=== PATIENT | female | born 1950 | race Caucasian/White ===

== ENCOUNTER 2018-04-01 08:00 | Outpatient (RCR) ==
--- NOTE | 2018-03-15 16:54 | RS.OTEVAL ---
Subjective Date of Note: 03/15/18 Visit #: 1 Date of Evaluation: 03/15/18 Payer Source: MEDICARE Date of Onset/Injury/Change in Status: 03/05/15 Surgery Performed?: Yes Date of Procedure: 01/27/18 Treatment Diagnosis: M18.12 Treatment Side (optional): Left *Precautions: Arthritis Prior Level of Function.....Patient was independent with: ADL's, Self Care, Work /Vocation, Caregiving, Ambulation/Mobility, Community Integration/Access History of Condition/Mechanism of Injury: Pt began having arthritic pain in the left thumb carpometacarpal joint. Level of Function: Pt is 73% impaired with the Left hand and UE. 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 Pt is left handed and has had to learn to use the RUE. Functional Limitations: ADL's, Reaching, Pushing, Pulling, Carrying Current Complaints/Gains: Pt has had to learn to use the right hand for all of her needs. Edema of the left thumb and wrist. Medical History Medical History: Arthritis Medical History Comments:: hysterectomy, left thumb surgery Surgical History: Hysterectomy Surgical History Comments:: hysterectomy, left thumb, Smoking Status: Never smoker Hx Home Medications: citalopram, atorvastin Patient's Goals: To get to use her left hand as she did before without pain. Pain Assessment - Pain Description Current Pain Intensity: 0 Functional Outcome Measures UE Functional Index: 21 - G Codes & Severity Modifier G Codes: Current is CL which is 73% impaired, Goal is CH Source of G Code score: Carrying, moving, and handling objects Observation - Observation Posture: Normal Handedness: Left Shoulder ROM: Bilaterally WFL's Shoulder Muscle Strength: Bilaterally WFL's Elbow ROM: Right WFL's Elbow Muscle Strength: Right WFL's - Left Elbow ROM Left Elbow Extension: 0 Left Elbow Flexion: 155 Left Elbow Supination: 80 Left Elbow Pronation: 90 Left Elbow ROM Limitations: Soft Tissue Tightness, Muscle Weakness Comments: Pt has edema in the left wrist and forearm which is limiting her AROM of supination. - Right Elbow Strength Right Elbow Extension: 4+ Good + Right Elbow Flexion: 4+ Good + Right Forearm Pronation: 4+ Good + Right Forearm Supination: 4+ Good + Wrist ROM: Right WFL's (No strength measurements assessed for CHRIST per doctor orders.) Wrist Muscle Strength: Right WFL's - Left Wrist/Hand ROM Left Wrist Extension: 45 Left Wrist Flexion: 40 (edema limiting motion) Left Wrist Radial Deviation: 15 (edema limits) Left Wrist Ulnar Deviation: 10 (edema limits) - Right Wrist Strength Right Wrist Extension: 4+ Good + Right Wrist Flexion: 4+ Good + Right Wrist Radial Deviation: 4+ Good + Right Wrist Ulnar Deviation: 4+ Good + Right Forearm Pronation: 4+ Good + Right Forearm Supination: 4+ Good + Palpation Palpation Findings: Tenderness Comments:: Pt has scar tissue to the left dorsal thumb. Sensation Left Upper Extremity: Impaired Sensation Description: Numbness Comments: IP joint on left thumb feels like it is trying to wake up. Modalities - Hot Pack/Cryotherapy Treatment: Cryotherapy Interventions - Exercise/Activities Exercise/Activities/Manual Therapy: MT, EX, Education for home program of contrast bath with LUE. HOME EXERCISE PROGRAM: Contrast bath 1 minute in the hot, 1 minute in the cold. - Charges Timed Code Treatment Minutes: 85 Total Treatment Time: 85 Procedures billed for this date of service:: Evaluation-medium, MT, EX EVALUATION COMPLEXITY LEVEL: HISTORY: Medium, EXAM OF BODY SYSTEMS: Medium, CLINICAL DECISION MAKING: Medium Assessment Assessment: Pt has edema in her digits of the LUE: Thumb-7.4 CM, Index- 7.0 CM , Long 6.8 CM, Ring 6.1 CM, Small- 5.7 CM. RUE: thumb- 7.3 CM, index-6.8 CM, long 6.8 CM, Ring 6.5 CM, SMall 6.0 CM. Left thumb ADB - 15 -40 deg. Left thumb ADD 15 deg. Left thumb flexion is 10 deg. Hitch hike is 40 deg. Pt can only complete opposition to the index digit before manual therapy Rehab Potential: Good Problems/Comments: Pt has limited movements because of splint and edema of digits, wrist, and hand and forearm. Short Term Goals Goal #1: Pt to be able to complete opposition to index, long, and ring. Goal to be met by: 03/29/18 Goal #2: Pt to increase LUE supination to WFL. Goal to be met by: 03/29/18 Goal #3: Pt to increase LUE wrist flexion to 55 deg. Goal to be met by: 04/01/18 Goal #4: Pt edema to decreast so she is able to make a full fist. Goal to be met by: 04/01/18 Custodial Goals Goal #1: Pt to be able to complete opposition to all digits. Goal to be met by: 05/10/18 Goal #2: Pt to have full AROM of SUPination of LUE. Goal to be met by: 05/10/18 Goal #3: Pt to increase LUE wrist flexion to 60 deg. Goal to be met by: 05/10/18 Goal #4: Pt to be independent with HEP. Goal to be met by: 05/10/18 Plan - Treatment to be provided Procedures: Therapeutic Exercises, Therapeutic Activity, Manual Therapy Modalities: Electrical Stimulation, Ultrasound/Phonophoresis, Cryotherapy, Hot Packs - Treatment Plan Frequency: 2 X week Duration: 8 weeks ORDER # VISITS AND/OR THROUGH DATE: 05/10/18 - Treatment Code (1) Muscle weakness (generalized) Code(s): M62.81 - MUSCLE WEAKNESS (GENERALIZED) Comments: M62.81 weakness of Left thumb joint, wrist and hand. (2) Stiffness of left hand joint Code(s): M25.642 - STIFFNESS OF LEFT HAND, NOT ELSEWHERE CLASSIFIED Comments: M25.642 stiffness of left hand joint
--- NOTE | 2018-03-19 16:21 | RS.OTDNOTE ---
Subjective Date of Note: 03/19/18 Visit #: 2 Date of Evaluation: 03/15/18 Payer Source: MEDICARE Treatment Diagnosis: M18.12 *Precautions: Arthritis Current Complaints/Gains: Pt asks if she can take thumb splint off more but is educated with physician's portocol. States she has been doing contrast bath's at home and feels her swelling has decreased. Modalities - Treatment Modality: Ultrasound Parameters/Method Applied: .04w/cm2 x 10 mins Patient Position: Sitting Interventions - Exercise/Activities Exercise/Activities/Manual Therapy: MT/retrograde massage and scar laurel massage performed with pt ed on HEP. Thumb/digits and wrist PROM performed with pt ed cont for home. Prolonged stretching supination and wrist flexion/extension performed. HOME EXERCISE PROGRAM: Contrast bath 1 minute in the hot, 1 minute in the cold. - Charges Timed Code Treatment Minutes: 42 Total Treatment Time: 42 Procedures billed for this date of service:: US MT2 Assessment Patient Education: Education of diagnosis, Body/Joint mechanics, Home Exercise Program, Home Safety, Activity Modification, Education of Plan of Care Patient demonstrates compliance with HEP?: Yes Short Term Goals Goal #1: Pt to be able to complete opposition to index, long, and ring. Goal to be met by: 03/29/18 Progress towards goal: Progressing Goal #2: Pt to increase LUE supination to WFL. Goal to be met by: 03/29/18 Progress towards goal: Progressing Goal #3: Pt to increase LUE wrist flexion to 55 deg. Goal to be met by: 04/01/18 Progress towards goal: Progressing Goal #4: Pt edema to decreast so she is able to make a full fist. 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 Goal to be met by: 05/10/18 Progress towards goal: Progressing Goal #2: Pt to have full AROM of SUPination of LUE. Goal to be met by: 05/10/18 Progress towards goal: Progressing Goal #3: Pt to increase LUE wrist flexion to 60 deg. Goal to be met by: 05/10/18 Progress towards goal: Progressing Goal #4: Pt to be independent with HEP. Goal to be met by: 05/10/18 Progress towards goal: Progressing Plan PLAN OF CARE EXPIRES ON:: 05/10/18 ORDER # VISITS AND/OR THROUGH DATE: 05/10/18 PLAN: Cont per POC to max fx hand use, ROM, and strength.
--- NOTE | 2018-03-23 12:55 | RS.OTDNOTE ---
Subjective Date of Note: 03/23/18 Visit #: 3 Date of Evaluation: 03/15/18 Payer Source: MEDICARE Treatment Diagnosis: M18.12 *Precautions: Arthritis Current Complaints/Gains: Pt states and demo she can oppose all digits to thumb this date including MCP except 5th digit. States and demo palm opposition is getting better. States 0 c/o pain following therapy but that she can feel the "stretches". Modalities - Treatment Modality: Ultrasound Parameters/Method Applied: .04w/cm2 x 10 mins Patient Position: Sitting - Hot Pack/Cryotherapy Treatment: Cryotherapy Comments:: CP x 10 mins following tx Interventions - Exercise/Activities Exercise/Activities/Manual Therapy: MT/retrograde massage and scar laurel massage performed with pt ed on HEP. Thumb/digits and wrist PROM performed with pt ed cont for home. Prolonged stretching supination and wrist flexion/extension performed along with opposition and thumb to palm stretch. HOME EXERCISE PROGRAM: Contrast bath 1 minute in the hot, 1 minute in the cold. - Objective Findings Objective Findings:: AROM increaing with decreased c/o pain - Charges Timed Code Treatment Minutes: 48 Total Treatment Time: 58 Procedures billed for this date of service:: CP US MT2 Assessment Patient Education: Education of diagnosis, Body/Joint mechanics, Home Exercise Program, Home Safety, Activity Modification, Education of Plan of Care Patient demonstrates compliance with HEP?: Yes Short Term Goals Goal #1: Pt to be able to complete opposition to index, long, and ring. Goal to be met by: 03/29/18 Progress towards goal: Met Goal #2: Pt to increase LUE supination to WFL. Goal to be met by: 03/29/18 Progress towards goal: Partially Met Comments: PROM met Goal #3: Pt to increase LUE wrist flexion to 55 deg. Goal to be met by: 04/01/18 Progress towards goal: Progressing Goal #4: Pt edema to decreast so she is able to make a full fist. 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 Goal to be met by: 05/10/18 Progress towards goal: Progressing Goal #2: Pt to have full AROM of SUPination of LUE. Goal to be met by: 05/10/18 Progress towards goal: Progressing Goal #3: Pt to increase LUE wrist flexion to 60 deg. Goal to be met by: 05/10/18 Progress towards goal: Progressing Goal #4: Pt to be independent with HEP. 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
--- NOTE | 2018-03-25 09:05 | RS.OTDNOTE ---
Subjective Date of Note: 03/25/18 Visit #: 4 Date of Evaluation: 03/15/18 Payer Source: MEDICARE Treatment Diagnosis: M18.12 *Precautions: Arthritis Current Complaints/Gains: Pt with increased c/o pain this am but states "not bad enough to take medicine." Pain Assessment - Pain Description Pain Description: Tightness, Dull Current Pain Intensity: 1 Worst Pain Intensity: 3-4 Modalities - Treatment Modality: Ultrasound Parameters/Method Applied: .04w/cm2 x 10 mins Treatment Area: thumb/wrist Patient Position: Sitting - Hot Pack/Cryotherapy Treatment: Hot Pack, Cryotherapy Comments:: HP prior to PROM with CP applied x 10 mins following Interventions - Exercise/Activities Exercise/Activities/Manual Therapy: MT/retrograde massage and scar laurel massage performed with pt ed on HEP. Thumb/digits and wrist PROM performed with pt ed cont for home. Prolonged stretching supination and wrist flexion/extension performed along with opposition and thumb to palm stretch. HOME EXERCISE PROGRAM: Contrast bath 1 minute in the hot, 1 minute in the cold. - Objective Findings Objective Findings:: AROM increaing with decreased c/o pain - Charges Timed Code Treatment Minutes: 40 Total Treatment Time: 62 Procedures billed for this date of service:: HP/CP US MT2 Assessment Patient Education: Education of diagnosis, Body/Joint mechanics, Home Exercise Program, Home Safety, Activity Modification, Education of Plan of Care Patient demonstrates compliance with HEP?: Yes Short Term Goals Goal #1: Pt to be able to complete opposition to index, long, and ring. Goal to be met by: 03/29/18 Progress towards goal: Met Goal #2: Pt to increase LUE supination to WFL. Goal to be met by: 03/29/18 Progress towards goal: Partially Met Goal #3: Pt to increase LUE wrist flexion to 55 deg. Goal to be met by: 04/01/18 Progress towards goal: Progressing Goal #4: Pt edema to decreast so she is able to make a full fist. Goal to be met by: 04/01/18 Progress towards goal: Progressing Usp Goals Goal #1: Pt to be able to complete opposition to all digits. Goal to be met by: 05/10/18 Progress towards goal: Progressing Goal #2: Pt to have full AROM of SUPination of LUE. Goal to be met by: 05/10/18 Progress towards goal: Progressing Goal #3: Pt to increase LUE wrist flexion to 60 deg. Goal to be met by: 05/10/18 Progress towards goal: Progressing Goal #4: Pt to be independent with HEP. Goal to be met by: 05/10/18 Progress towards goal: Progressing Plan PLAN OF CARE EXPIRES ON:: 05/10/18 ORDER # VISITS AND/OR THROUGH DATE: 05/10/18 PLAN: Continue current POC to max fx use and AROM with decreased pain.
--- NOTE | 2018-03-30 09:13 | RS.OTDNOTE ---
Subjective Date of Note: 03/30/18 Visit #: 5 Date of Evaluation: 03/15/18 Payer Source: MEDICARE Treatment Diagnosis: M18.12 *Precautions: Arthritis Current Complaints/Gains: Pt with decreased AROM/digit opposition this am and increased c/o pain/sweeling. Ptl states she fell backwards going down her steps on Thursday. States she was donning brace during accident. States she has not performed contrast bath or applied CP to hand but agress to perform x2-3 daily until next therapy visit. Pt demo improved PROM/AROM following tx this am. Pain Assessment - Pain Description Pain Description: Tightness, Dull, Throbbing, Aching Current Pain Intensity: 2-3 Worst Pain Intensity: 8 Modalities - Treatment Modality: Ultrasound Parameters/Method Applied: .04w/cm2 x 10 mins Patient Position: Sitting - Hot Pack/Cryotherapy Treatment: Cryotherapy Comments:: Ice massage Interventions - Exercise/Activities Exercise/Activities/Manual Therapy: MT/retrograde massage and scar laurel massage performed with pt ed on HEP. Thumb/digits and wrist PROM performed with pt ed cont for home. Prolonged stretching supination and wrist flexion/extension performed along with opposition and thumb to palm stretch. HOME EXERCISE PROGRAM: Contrast bath 1 minute in the hot, 1 minute in the cold. - Objective Findings Objective Findings:: AROM increaing with decreased c/o pain - Charges Timed Code Treatment Minutes: 48 Total Treatment Time: 48 Procedures billed for this date of service:: MT CP US Assessment Patient Education: Education of diagnosis, Body/Joint mechanics, Home Exercise Program, Home Safety, Activity Modification, Education of Plan of Care Patient demonstrates compliance with HEP?: Yes Short Term Goals Goal #1: Pt to be able to complete opposition to index, long, and ring. Goal to be met by: 03/29/18 Progress towards goal: Met Goal #2: Pt to increase LUE supination to WFL. Goal to be met by: 03/29/18 Progress towards goal: Partially Met Goal #3: Pt to increase LUE wrist flexion to 55 deg. Goal to be met by: 04/01/18 Progress towards goal: Progressing Goal #4: Pt edema to decreast so she is able to make a full fist. 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 Goal to be met by: 05/10/18 Progress towards goal: Progressing Goal #2: Pt to have full AROM of SUPination of LUE. Goal to be met by: 05/10/18 Progress towards goal: Progressing Goal #3: Pt to increase LUE wrist flexion to 60 deg. Goal to be met by: 05/10/18 Progress towards goal: Progressing Goal #4: Pt to be independent with HEP. Goal to be met by: 05/10/18 Progress towards goal: Progressing Plan PLAN OF CARE EXPIRES ON:: 05/10/18 ORDER # VISITS AND/OR THROUGH DATE: 05/10/18 PLAN: Cont per POC to max fx use of hand with increased GS and ROM
--- NOTE | 2018-04-01 13:46 | RS.OTDNOTE ---
Subjective Date of Note: 04/01/18 Visit #: 6 Date of Evaluation: 03/15/18 Payer Source: MEDICARE Treatment Diagnosis: M18.12 *Precautions: Arthritis Current Complaints/Gains: Pt states her hand feels much better today and her AROM is almost as good as it was prior to her fall. 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 Pain Assessment - Pain Description Pain Description: Tightness, Dull, Aching Current Pain Intensity: 0 Worst Pain Intensity: 2-3 Modalities - Treatment Modality: Ultrasound Parameters/Method Applied: 1.5w/cm2 x 12 mins - Hot Pack/Cryotherapy Treatment: Cryotherapy Comments:: x10 mins following tx Interventions - Exercise/Activities Exercise/Activities/Manual Therapy: MT/retrograde massage and scar laurel massage performed with pt ed on HEP continued. Thumb/digits and wrist PROM performed with pt ed cont for home. Prolonged stretching supination and wrist flexion/ extension performed along with opposition and thumb to palm stretch. HOME EXERCISE PROGRAM: Contrast bath 1 minute in the hot, 1 minute in the cold. - Objective Findings Objective Findings:: AROM increaing with decreased c/o pain - Charges Timed Code Treatment Minutes: 51 Total Treatment Time: 62 Procedures billed for this date of service:: CP US MT2 Assessment Patient Education: Education of diagnosis, Body/Joint mechanics, Home Exercise Program, Home Safety, Activity Modification, Education of Plan of Care Patient demonstrates compliance with HEP?: Yes Short Term Goals Goal #1: Pt to be able to complete opposition to index, long, and ring. Goal to be met by: 03/29/18 Progress towards goal: Met Goal #2: Pt to increase LUE supination to WFL. Goal to be met by: 03/29/18 Progress towards goal: Met Goal #3: Pt to increase LUE wrist flexion to 55 deg. Goal to be met by: 04/01/18 Progress towards goal: Partially Met Goal #4: Pt edema to decreast so she is able to make a full fist. Goal to be met by: 04/01/18 Progress towards goal: Progressing Long-Term Goals Goal #1: Pt to be able to complete opposition to all digits. Goal to be met by: 05/10/18 Progress towards goal: Partially Met Goal #2: Pt to have full AROM of SUPination of LUE. Goal to be met by: 05/10/18 Progress towards goal: Progressing Goal #3: Pt to increase LUE wrist flexion to 60 deg. Goal to be met by: 05/10/18 Progress towards goal: Progressing Goal #4: Pt to be independent with HEP. Goal to be met by: 05/10/18 Progress towards goal: Progressing Plan PLAN OF CARE EXPIRES ON:: 05/10/18 ORDER # VISITS AND/OR THROUGH DATE: 05/10/18 PLAN: Cont per POC to max fx use and strength to return to PLOF.
== END 2018-04-03 23:59 ==
PROVIDERS: ATTEND Orthopaedic Surgery
DX: M18.12 Unilateral primary osteoarthritis of first carpometacarpal joint, left hand (principal)

== ENCOUNTER 2018-04-26 08:00 | Outpatient (RCR) ==
--- NOTE | 2018-04-06 09:29 | RS.OTDNOTE ---
Subjective Date of Note: 04/06/18 Visit #: 7 Date of Evaluation: 03/15/18 Payer Source: MEDICARE Treatment Diagnosis: M18.12 *Precautions: Arthritis Current Complaints/Gains: Pt eager to begin TE of hand/wrist. States and demo full AROM of (L) hand. (L) hand GS at 14# and 17# (R) 41#. Lateral and tip- tip at 6#. States using her hand "feels good" and pt voices good understanding of splint use at night and precautions to prevent injury to (L) hand. Pain Assessment - Pain Description Current Pain Intensity: 0 Worst Pain Intensity: 2 Modalities - Hot Pack/Cryotherapy Treatment: Cryotherapy (CP x 10 mins following TE/MT) Interventions - Exercise/Activities Exercise/Activities/Manual Therapy: MT/retrograde massage performed with PROM- AROM of all digits and wrist. TE with yellow t-putty, 1# hand weight, wrist checkerer hand, yellow/red digi-flex, and stan flex ex performed. HOME EXERCISE PROGRAM: Contrast bath 1 minute in the hot, 1 minute in the cold. - Objective Findings Objective Findings:: AROM increaing with decreased c/o pain - Charges Timed Code Treatment Minutes: 46 Total Treatment Time: 56 Procedures billed for this date of service:: CP MT EX2 Assessment Patient Education: Education of diagnosis, Body/Joint mechanics, Home Exercise Program, Home Safety, Activity Modification, Education of Plan of Care Patient demonstrates compliance with HEP?: Yes Short Term Goals Goal #1: Pt to be able to complete opposition to index, long, and ring. Goal to be met by: 03/29/18 Progress towards goal: Met Goal #2: Pt to increase LUE supination to WFL. Goal to be met by: 03/29/18 Progress towards goal: Met Goal #3: Pt to increase LUE wrist flexion to 55 deg. Goal to be met by: 04/01/18 Progress towards goal: Partially Met Goal #4: Pt edema to decreast so she is able to make a full fist. Goal to be met by: 04/01/18 Progress towards goal: Met Senior Living Goals Goal #1: Pt to be able to complete opposition to all digits. Goal to be met by: 05/10/18 Progress towards goal: Met Goal #2: Pt to have full AROM of SUPination of LUE. Goal to be met by: 05/10/18 Progress towards goal: Partially Met Goal #3: Pt to increase LUE wrist flexion to 60 deg. Goal to be met by: 05/10/18 Progress towards goal: Progressing Goal #4: Pt to be independent with HEP. Goal to be met by: 05/10/18 Progress towards goal: Progressing Plan PLAN OF CARE EXPIRES ON:: 05/10/18 ORDER # VISITS AND/OR THROUGH DATE: 05/10/18 PLAN: Cont per POC to max fx UE use and strength
--- NOTE | 2018-04-08 11:59 | RS.OTDNOTE ---
Subjective Date of Note: 04/08/18 Visit #: 8 Date of Evaluation: 03/15/18 Payer Source: MEDICARE Treatment Diagnosis: M18.12 *Precautions: Arthritis Current Complaints/Gains: Pt states she has been utilizing her hand more and knows her limits now. States good compliance with HEP and performing contrast baths. States pain level as "tolerable" and does not rate on 10 point scale. States hand feels better and more loose. Pain Assessment - Pain Description Pain Description: Tightness, Dull Modalities - Treatment Modality: Ultrasound Parameters/Method Applied: .04w/cm2 x 10 mins - Hot Pack/Cryotherapy Treatment: Cryotherapy (CP x 10 mins) Interventions - Exercise/Activities Exercise/Activities/Manual Therapy: MT/retrograde massage performed with PROM- AROM of all digits and wrist. TE with yellow progressed to red t-putty, 1# progressed to 2# hand weight for pro/sup and wrist flex/extension, wrist beef grader, yellow/red/green digi-flex, and stan flex ex performed. GS at 21# 26 # this date. HOME EXERCISE PROGRAM: Contrast bath 1 minute in the hot, 1 minute in the cold. - Objective Findings Objective Findings:: AROM increaing with decreased c/o pain. Full digit oppositon. - Charges Timed Code Treatment Minutes: 48 Total Treatment Time: 59 Procedures billed for this date of service:: CP US EX2 Assessment Patient Education: Education of diagnosis, Body/Joint mechanics, Home Exercise Program, Home Safety, Activity Modification, Education of Plan of Care Patient demonstrates compliance with HEP?: Yes Short Term Goals Goal #1: Pt to be able to complete opposition to index, long, and ring. Goal to be met by: 03/29/18 Progress towards goal: Met Goal #2: Pt to increase LUE supination to WFL. Goal to be met by: 03/29/18 Progress towards goal: Met Goal #3: Pt to increase LUE wrist flexion to 55 deg. Goal to be met by: 04/01/18 Progress towards goal: Met Goal #4: Pt edema to decreast so she is able to make a full fist. Goal to be met by: 04/01/18 Progress towards goal: Met Intermediate Goals Goal #1: Pt to be able to complete opposition to all digits. Goal to be met by: 05/10/18 Progress towards goal: Met Goal #2: Pt to have full AROM of SUPination of LUE. Goal to be met by: 05/10/18 Progress towards goal: Met Goal #3: Pt to increase LUE wrist flexion to 60 deg. Goal to be met by: 05/10/18 Progress towards goal: Progressing Goal #4: Pt to be independent with HEP. Goal to be met by: 05/10/18 Progress towards goal: Progressing Comments: Progressing TE Plan PLAN OF CARE EXPIRES ON:: 05/10/18 ORDER # VISITS AND/OR THROUGH DATE: 05/10/18 PLAN: Cont per POC to max fx strength in hand.
--- NOTE | 2018-04-12 13:17 | RS.OTDNOTE ---
Subjective Date of Note: 04/12/18 Visit #: 9 Date of Evaluation: 03/15/18 Payer Source: MEDICARE Treatment Diagnosis: M18.12 *Precautions: Arthritis Current Complaints/Gains: Pt states she performed yard work over the wknd. States hand feels "loose" and "better" following therapy. Pain Assessment - Pain Description Pain Description: Tightness, Dull Current Pain Intensity: 0 Worst Pain Intensity: 3 Modalities - Treatment Modality: Ultrasound Parameters/Method Applied: .05w/cm2 x 10 mins Treatment Area: thumb Patient Position: Sitting - Hot Pack/Cryotherapy Treatment: Cryotherapy (Ice massage performed to pt tolerance/numbness) Interventions - Exercise/Activities Exercise/Activities/Manual Therapy: MT/retrograde massage performed with PROM- AROM of all digits and wrist. TE with red t-putty, 2# hand weight for pro/sup and wrist flex/extension, wrist digital marketing apprentice, yellow/red/green digi-flex, and stan flex ex performed. HOME EXERCISE PROGRAM: Contrast bath 1 minute in the hot, 1 minute in the cold. - Objective Findings Objective Findings:: AROM increaing with decreased c/o pain. Full digit oppositon following tx. pt with increased edema noted. - Charges Timed Code Treatment Minutes: 59 Total Treatment Time: 59 Procedures billed for this date of service:: CP US MT EX Assessment Patient Education: Education of diagnosis, Body/Joint mechanics, Home Exercise Program, Home Safety, Activity Modification, Education of Plan of Care Patient demonstrates compliance with HEP?: Yes Short Term Goals Goal #1: Pt to be able to complete opposition to index, long, and ring. Goal to be met by: 03/29/18 Progress towards goal: Met Goal #2: Pt to increase LUE supination to WFL. Goal to be met by: 03/29/18 Progress towards goal: Met Goal #3: Pt to increase LUE wrist flexion to 55 deg. Goal to be met by: 04/01/18 Progress towards goal: Met Goal #4: Pt edema to decreast so she is able to make a full fist. Goal to be met by: 04/01/18 Progress towards goal: Met Intermediate Goals Goal #1: Pt to be able to complete opposition to all digits. Goal to be met by: 05/10/18 Progress towards goal: Met Goal #2: Increase GS to 45# Goal to be met by: 05/10/18 Progress towards goal: Progressing Goal #3: Pt to increase LUE wrist flexion to 60 deg. Goal to be met by: 05/10/18 Progress towards goal: Progressing Goal #4: Pt to be independent with HEP. Goal to be met by: 05/10/18 Progress towards goal: Progressing Plan PLAN OF CARE EXPIRES ON:: 05/10/18 ORDER # VISITS AND/OR THROUGH DATE: 05/10/18 PLAN: Cont per POC to max UE GS and AROM
--- NOTE | 2018-04-15 13:30 | RS.OTDNOTE ---
Subjective Date of Note: 04/15/18 Visit #: 10 Date of Evaluation: 03/15/18 Payer Source: MEDICARE Treatment Diagnosis: M18.12 *Precautions: Arthritis Current Complaints/Gains: Pt reports good compliance with performing HEP and CP. States min swelling this am. State hand feels better following therapy and "feels loose." Pain Assessment - Pain Description Pain Description: Tightness, Dull Current Pain Intensity: 0-1 Worst Pain Intensity: 2 Modalities - Treatment Modality: Ultrasound Parameters/Method Applied: 1.0w/cm2 x 10 Patient Position: Sitting - Hot Pack/Cryotherapy Treatment: Cryotherapy Comments:: CP X 10 mins following tx Interventions - Exercise/Activities Exercise/Activities/Manual Therapy: MT/retrograde massage performed with PROM- AROM of all digits and wrist. TE with red t-putty, 2# progressed to 3# hand weight for pro/sup and wrist flex/extension 07/06, wrist mender knit goods, yellow/red/ green digi-flex, and stan flex ex performed. HOME EXERCISE PROGRAM: Contrast bath 1 minute in the hot, 1 minute in the cold. - Objective Findings Objective Findings:: AROM increaing with decreased c/o pain. Full digit oppositon following tx. pt with increased edema noted prior to therapy. - Charges Timed Code Treatment Minutes: 49 Total Treatment Time: 59 Procedures billed for this date of service:: CP US EX2 Assessment Patient Education: Education of diagnosis, Body/Joint mechanics, Home Exercise Program, Home Safety, Activity Modification, Education of Plan of Care Patient demonstrates compliance with HEP?: Yes Short Term Goals Goal #1: Pt to be able to complete opposition to index, long, and ring. Goal to be met by: 03/29/18 Progress towards goal: Met Goal #2: Pt to increase LUE supination to WFL. Goal to be met by: 03/29/18 Progress towards goal: Met Goal #3: Pt to increase LUE wrist flexion to 55 deg. Goal to be met by: 04/01/18 Progress towards goal: Met Goal #4: Pt edema to decreast so she is able to make a full fist. Goal to be met by: 04/01/18 Progress towards goal: Met [facility] Goals Goal #1: Pt to be able to complete opposition to all digits. Goal to be met by: 05/10/18 Progress towards goal: Met Goal #2: Increase GS to 45# Goal to be met by: 05/10/18 Progress towards goal: Progressing Comments: 29# Goal #3: Pt to increase LUE wrist flexion to 60 deg. Goal to be met by: 05/10/18 Progress towards goal: Progressing Goal #4: Pt to be independent with HEP. Goal to be met by: 05/10/18 Progress towards goal: Progressing Plan PLAN OF CARE EXPIRES ON:: 05/10/18 ORDER # VISITS AND/OR THROUGH DATE: 05/10/18 PLAN: Cont per POC to max fx strength
--- NOTE | 2018-04-19 09:36 | RS.OTPN ---
Subjective Date of Note: 04/16/18 Visit #: 10 Date of Evaluation: 03/15/18 Payer Source: MEDICARE Date of Onset/Injury/Change in Status: 03/05/15 Surgery Performed?: Yes Date of Procedure: 01/27/18 Treatment Diagnosis: M18.12 Treatment Side (optional): Left *Precautions: Arthritis Prior Level of Function.....Patient was independent with: ADL's, Self Care, Work /Vocation, Caregiving, Ambulation/Mobility, Community Integration/Access History of Condition/Mechanism of Injury: Pt began having arthritic pain in the left thumb carpometacarpal joint. Level of Function: Pt is 73% impaired with the Left hand and UE. Pt is in a splint and is not able to reproduction artist items or pinch items to hold on to. Pt is left handed and has had to learn to use the RUE. Pt has some stiffness in the morning but is able to stretch to full AROM of the Left thumb in opposition, abduction, adduction. Functional Limitations: ADL's, Reaching, Pushing, Pulling, Carrying Current Complaints/Gains: Pt has soreness at times in the Left thumb, however she does not require pain medicine. Pt is able to sew again. Pt has increased from a 21 in the upper extremity functional Index to a 64. Pain Assessment - Pain Description Pain Description: Tightness, Dull Pain Location: Left carpometacarpal joint (CMC joint) is tender at times. Pt reports it is only sore and she does not have to take anything for pain. Pain Description: 1-2 intermittently. Current Pain Intensity: 0 Worst Pain Intensity: 2 Functional Outcome Measures UE Functional Index: 64 - G Codes & Severity Modifier G Codes: Carry, moving, and handling. Source of G Code score: CJ at 20% Observation - Observation Posture: Normal Handedness: Left Shoulder ROM: Bilaterally WFL's Shoulder Muscle Strength: Bilaterally WFL's Elbow ROM: Bilaterally WFL's Elbow Muscle Strength: Bilaterally WFL's Wrist ROM: Bilaterally WFL's Wrist Muscle Strength: Right WFL's - Left Wrist Strength Left Wrist Extension: 4 Good Left Wrist Flexion: 4 Good Left Wrist Radial Deviation: 4 Good Left Wrist Ulnar Deviation: 4 Good Left Forearm Pronation: 4 Good Left Forearm Supination: 4 Good - Right Wrist Strength Right Wrist Extension: 4+ Good + Right Wrist Flexion: 4+ Good + Right Wrist Radial Deviation: 4+ Good + Right Wrist Ulnar Deviation: 4+ Good + Right Forearm Pronation: 4+ Good + Right Forearm Supination: 4+ Good + - Laborer Car Barn Strength Left Laborer Car Barn Strength: 29 Palpation Palpation Findings: Tenderness Comments:: Pt doing well managing scar tissue. Sensation Left Upper Extremity: Intact/Normal Sensation Description: Within Normal Limits Comments: IP joint sensation is intact. Modalities - Hot Pack/Cryotherapy Treatment: Cryotherapy Interventions - Exercise/Activities Exercise/Activities/Manual Therapy: MT/retrograde massage performed with PROM- AROM of all digits and wrist. TE with red t-putty, 2# progressed to 3# hand weight for pro/sup and wrist flex/extension 07/06, wrist mica miner blasting, yellow/red/ green digi-flex, and stan flex ex performed. HOME EXERCISE PROGRAM: Putty exercises with yellow and red. Wrist flexion and extension, radial flexion and extension, Opposition of thumb to palm, and digis. - Objective Findings Objective Findings:: AROM increaing with decreased c/o pain. Full digit oppositon following tx. pt with increased edema noted prior to therapy. - Charges Timed Code Treatment Minutes: . Total Treatment Time: . Procedures billed for this date of service:: . Assessment Assessment: Pt is making great progress with her Left thumb. Pt has full AROM and her mass Laborer Car Barn strength has increased to 29#. Pt has reduced her impairement from 73% to 20%. Pt is back sewing as she wanted. Rehab Potential: Good Problems/Comments: Tenderness intermittently in the left thumb. Pt is using her Left thumb/hand and is able to complete her sewing. Pt has improved her pinching. Short Term Goals Goal #1: Pt to be able to complete opposition to index, long, and ring. Goal to be met by: 03/29/18 Progress towards goal: Met Goal #2: Pt to increase LUE supination to WFL. Goal to be met by: 03/29/18 Progress towards goal: Met Goal #3: Pt to increase LUE wrist flexion to 55 deg. Goal to be met by: 04/01/18 Progress towards goal: Met Goal #4: Pt edema to decreast so she is able to make a full fist. Goal to be met by: 04/01/18 Progress towards goal: Met Care Home Goals Goal #1: Pt to be able to complete opposition to all digits. Goal to be met by: 05/10/18 Progress towards goal: Met Goal #2: Increase GS to 45# Goal to be met by: 05/10/18 Progress towards goal: Progressing Goal #3: Pt to increase LUE wrist flexion to 60 deg. Goal to be met by: 05/10/18 Progress towards goal: Progressing Goal #4: Pt to be independent with HEP. Goal to be met by: 05/10/18 Progress towards goal: Progressing Plan PLAN OF CARE EXPIRES ON:: 05/10/18 ORDER # VISITS AND/OR THROUGH DATE: 05/10/18 PLAN: To have a treatment next week and then go to the doctor for a follow up and direction. Frequency: 2 X week Duration: 3 weeks
--- NOTE | 2018-04-19 12:58 | RS.OTDNOTE ---
Subjective Date of Note: 04/19/18 Visit #: 11 Date of Evaluation: 03/15/18 Payer Source: MEDICARE Treatment Diagnosis: M18.12 *Precautions: Arthritis Current Complaints/Gains: Pt pleased with her progress. States she is able to do all her sewing again. States she is performing HEP and applying CP. States pain at 0-2. States she feels she will keep getting stronger with time and wishes to continue with ex at home but is agreeable to finish her order with 1 OT visit next wk prior to MD appointment. Pain Assessment - Pain Description Pain Description: Tightness, Dull Pain Location: Left carpometacarpal joint (CMC joint) is tender at times. Pt reports it is only sore and she does not have to take anything for pain. Pain Description: 1-2 intermittently. Current Pain Intensity: 0 Worst Pain Intensity: 1-2 Modalities - Treatment Modality: Ultrasound Parameters/Method Applied: 1.5w/cm2 x 10 mins Patient Position: Sitting - Hot Pack/Cryotherapy Treatment: Cryotherapy (CP X 10 mins) Interventions - Exercise/Activities Exercise/Activities/Manual Therapy: MT/retrograde massage performed with PROM- AROM of all digits and wrist. TE with red progressed to green t-putty, 5# hand weight for pro/sup and wrist flex/extension 07/07, wrist manager cargo, green/blue digi-flex, and stan flex ex performed. HOME EXERCISE PROGRAM: Putty exercises with green and red. Wrist flexion and extension, radial flexion and extension, Opposition of thumb to palm, and digis. - Objective Findings Objective Findings:: AROM increaing with decreased c/o pain. Full digit oppositon following tx. pt with increased edema noted prior to therapy. - Charges Timed Code Treatment Minutes: 48 Total Treatment Time: 58 Procedures billed for this date of service:: CP USEX2 Assessment Patient Education: Education of diagnosis, Body/Joint mechanics, Home Exercise Program, Home Safety, Activity Modification, Education of Plan of Care Patient demonstrates compliance with HEP?: Yes Short Term Goals Goal #1: Pt to be able to complete opposition to index, long, and ring. Goal to be met by: 03/29/18 Progress towards goal: Met Goal #2: Pt to increase LUE supination to WFL. Goal to be met by: 03/29/18 Progress towards goal: Met Goal #3: Pt to increase LUE wrist flexion to 55 deg. Goal to be met by: 04/01/18 Progress towards goal: Met Goal #4: Pt edema to decreast so she is able to make a full fist. Goal to be met by: 04/01/18 Progress towards goal: Met District Plant Engineer Goals Goal #1: Pt to be able to complete opposition to all digits. Goal to be met by: 05/10/18 Progress towards goal: Met Goal #2: Increase GS to 45# Goal to be met by: 05/10/18 Progress towards goal: Progressing Comments: 29# Goal #3: Pt to increase LUE wrist flexion to 60 deg. Goal to be met by: 05/10/18 Progress towards goal: Progressing Goal #4: Pt to be independent with HEP. Goal to be met by: 05/10/18 Progress towards goal: Progressing Plan PLAN OF CARE EXPIRES ON:: 05/10/18 ORDER # VISITS AND/OR THROUGH DATE: 05/10/18 PLAN: Pt to cont OT tx x 1 tx session next wk if no problems begin.
--- NOTE | 2018-04-26 13:17 | RS.OTDCSUM ---
Subjective Date of Discharge: 04/26/18 Date of Evaluation: 03/15/18 Number of Visits: 12 Treatment Diagnosis: L thumb joint replacement Current Level of Function: CH with 0% impaired Current Complaints/Gains: Pt has full AROM and use of her Left thumb. Pt knows to not lease picker very heavy items. Pain Assessment - Pain Description Pain Description: Tightness Pain Location: Left carpometacarpal joint (CMC joint) is tender at times. Pt reports it is only sore and she does not have to take anything for pain. Pain Description: 1-2 intermittently. Current Pain Intensity: 0 Functional Outcome Measures UE Functional Index: 80 - G Codes & Severity Modifier G Codes: CH is 0% impaired Source of G Code score: Carry, moving, and handling. Observation - Observation Posture: Normal Handedness: Right Shoulder ROM: Bilaterally WFL's Shoulder Muscle Strength: Bilaterally WFL's Elbow ROM: Bilaterally WFL's Elbow Muscle Strength: Bilaterally WFL's Palpation Palpation Findings: Tenderness Comments:: Pt doing well managing scar tissue. Sensation Left Upper Extremity: Intact/Normal Sensation Description: Within Normal Limits Comments: IP joint sensation is intact. Interventions - Exercise/Activities Exercise/Activities/Manual Therapy: MT/retrograde massage performed with PROM- AROM of all digits and wrist. TE with red progressed to green t-putty, 5# hand weight for pro/sup and wrist flex/extension /, wrist oral therapist, green/blue digi-flex, and stan flex ex performed. HOME EXERCISE PROGRAM: Putty exercises with green and red. Wrist flexion and extension, radial flexion and extension, Opposition of thumb to palm, and digis. - Objective Findings Objective Findings:: AROM increaing with decreased c/o pain. Full digit oppositon following tx. pt with increased edema noted prior to therapy. - Charges Timed Code Treatment Minutes: 30 Total Treatment Time: 32 Procedures billed for this date of service:: EX x2 Assessment Assessment: Pt has full AROM and has no pain with using the thumb in pinching. Rehab Potential: Good Short Term Goals Goal #1: Pt to be able to complete opposition to index, long, and ring. Goal to be met by: 03/29/18 Progress towards goal: Met Goal #2: Pt to increase LUE supination to WFL. Goal to be met by: 03/29/18 Progress towards goal: Met Goal #3: Pt to increase LUE wrist flexion to 55 deg. Goal to be met by: 04/01/18 Progress towards goal: Met Goal #4: Pt edema to decreast so she is able to make a full fist. Goal to be met by: 04/01/18 Progress towards goal: Met Senior Care Goals Goal #1: Pt to be able to complete opposition to all digits. Goal to be met by: 05/10/18 Progress towards goal: Met Goal #2: Increase GS to 45# Goal to be met by: 05/10/18 Progress towards goal: Progressing Goal #3: Pt to increase LUE wrist flexion to 60 deg. Goal to be met by: 05/10/18 Progress towards goal: Progressing Goal #4: Pt to be independent with HEP. Goal to be met by: 05/10/18 Progress towards goal: Progressing Plan Reason for Discharge:: No Further Skilled Therapy Indicated Comments: Pt wants to stop now at this time. Pt is using her LUE without any problems.
== END 2018-05-04 23:59 ==
PROVIDERS: ATTEND Orthopaedic Surgery
DX: M18.12 Unilateral primary osteoarthritis of first carpometacarpal joint, left hand (principal)

== ENCOUNTER 2018-06-21 07:15 | Day surgery (SDC) ==
[2018-06-21] MEDS ORDERED: LIDOCAINE 1% 20 ML MDV ID STA (07:43)
[2018-06-21 07:50] VITALS: TEMP 97.9
[2018-06-21] MEDS ORDERED: VERSED ONE (09:00)
[2018-06-21] MEDS ORDERED: DIPRIVAN 20 ML VIAL IVP ONE (09:00)
[2018-06-21 10:57] VITALS: BP 121/67
--- NOTE | 2018-06-22 07:55 | OP ---
PROCEDURE: COLONOSCOPY TO THE CECUM WITH SNARE POLYPECTOMY. ENDOSCOPIST: Kenneth GARSIA M.D. INDICATION: HISTORY OF POLYPS, LAST COLONOSCOPY 2014 INSTRUMENT: PCOberon [id number]. MEDICATION: PER ANESTHESIA. PROCEDURE: The patient was positioned for colonoscopy. The digital rectal exam was negative. The colonoscope was inserted through the anus and advanced to the cecum. The cecum was identified using the ileocecal valve and the appendiceal orifice as landmarks. The scope was slowly withdrawn through an adequately prepped colon. The cecum was reached with some difficulty. She has a very torturous colon with some restrictive mobility. [place] Bowel Prep score was 9. Small polyp at hepatic flexure removed using snare cautery. Small polyp at 30cm removed using snare cautery tissue was not retrieved. Small polyp at 20cm using snare cautery. Retroflex exam was otherwise notable for hemorrhoids. Withdraw time 14 minutes and 27 seconds. PLAN: 1. Suggest repeat colonoscopy for surveillance in 3 years CC: Dr. Lexi CHANDLER
== END 2018-06-21 10:10 | disposition home or self-care (01) ==
LOC: SURG 07:15
PROVIDERS: ATTEND Internal Medicine Gastroenterology
DX: Z86.010 Personal history of colon polyps (principal); D12.0 Benign neoplasm of cecum; D12.3 Benign neoplasm of transverse colon; D12.6 Benign neoplasm of colon, unspecified